=== PATIENT | female | born 1945 | race Caucasian/White ===

== ENCOUNTER → 2024-11-29 | Day surgery (SDC) | payer MEDICARE ==
[2024-11-28 10:07] LABS: BASOPHILS % 1.0 % (0.0-1.0); EOSINOPHILS % 1.6 % (0.0-6.0); LYMPHOCYTES % 25.2 % (18.0-39.1); MONOCYTES % 7.6 % (4.4-11.3); NEUTROPHILS % 64.1 % (38.7-80.0); RED CELL DISTRIBUTION WIDTH 13.7 % (11.7-14.4)
[2024-11-28 10:35] LABS: EST GLOMERULAR FILTRATION RATE 92.0 ML/MIN (>=60)
[~2024-11-29] MED LIST: ACETAMINOPHEN 1000 MG/100 ML 100 ML IV ONE; ATENOLOL50 MG PO; COQ1050 MG PO; DEXAMETHASONE SOD PHOS INJ 4 MG/ML SDV ONE; EPHEDRINE SULFATE INJ 50 MG/ML VIAL ONE; FENTANYL CITRATE/PF 100MCG/2 ML INJ ONE; GLIMEPIRIDE2 MG PO; HYDROCODON-ACE1 EA11 PO; K2 PLUS D3 TAB1 EACH PO; LIDOCAINE HCL 2% LOCAL INJ 5 ML SDV VIAL INJ ONE; ONDANSETRON HCL INJ 2MG/ML 2ML 2 MG/ML VIAL ONE; PROPOFOL IV EMULSION 10 MG/ML 20 ML VIAL ONE; ROCURONIUM BROMIDE 1 ML IV ONE; SEVOFLURANE INHAL SOLN 250 ML PEN BTL ONE; SUCCINYLCHOLINE CHLORIDE 20 MG/ML 10ML VIAL ONE; SUGAMMADEX SODIUM 200 MG/2 ML VIAL IV ONE; VITAMIN B COMP1 EACH PO; ZESTRIL40 MG PO; ZETIA10 MG PO
[2024-11-29] MEDS: CEFAZOLIN SODIUM 2 GM ONE (08:28)
[2024-11-29] MEDS: LACTATED RINGER'S 1,000 ML ONE (08:29)
[2024-11-29] MEDS: FENTANYL CITRATE/PF 100MCG/2 ML INJ ONE (11:50)
[2024-11-29] MEDS: HYDRALAZINE HCL 20 MG/ML VIAL ONE (12:07)
[2024-11-29 13:05] VITALS: BP 146/67; PULSE 88; RESP 18; O2SAT 95
== END | disposition home or self-care (01) ==
LOC: OR 07:45
PROVIDERS: ATTEND Surgery
DX: K42.0 Umbilical hernia with obstruction, without gangrene (principal); K56.690 Other partial intestinal obstruction; E11.9 Type 2 diabetes mellitus without complications; I10 Essential (primary) hypertension; E78.5 Hyperlipidemia, unspecified; E66.3 Overweight; Z01.810 Encounter for preprocedural cardiovascular examination; Z01.812 Encounter for preprocedural laboratory examination; Z01.818 Encounter for other preprocedural examination; Z79.84 Long term (current) use of oral hypoglycemic drugs; Z79.899 Other long term (current) drug therapy; Z68.34 Body mass index [BMI] 34.0-34.9, adult; Z71.3 Dietary counseling and surveillance
CPT/HCPCS: 36415 ×2; 49594; 71046; 80048; 82948; 85025; 88302; 93005; J0131; J0330; J0360; J1100; J2405; J2704; J3010; J7121; J2003